=== PATIENT | female | born 1970 | race Caucasian/White ===

== ENCOUNTER 2022-04-11 14:07 | Inpatient (IN) | payer OTHER ==
[~2022-04-11] VITALS: Ht 165.1 cm; Wt 72.6 kg
--- NOTE | 2022-04-11 14:19 | NUR ---
NATHALY HERNANDEZ From Home "Flu-like symptoms 10days-NOT better". To ER bed 6, hooked to monitor, patient AAOx4. breathing even and unlabored. c/o abdominal pain and diarrhea. awaiting MD santacruz. kept comfortable.
--- NOTE | 2022-04-11 14:20 | NUR ---
DR Everett at bedside
[2022-04-11] MEDS ORDERED: IV NS 0.9% 1,000 ML BAG IV ONE (14:30)
[2022-04-11] MEDS ORDERED: ONDANSETRON HCL/PF 4 MG/2 ML VIAL ONE (14:59)
[2022-04-11] MEDS ORDERED: ONDANSETRON HCL/PF - ER 4 MG/2 ML VIAL IV ONE (15:00)
[2022-04-11 15:05] LABS: EOSINOPHILS % (AUTO) 1.6 % (0.0-6.0); HEMATOCRIT 44 % (33-45); LYMPHOCYTES # (AUTO) 0.7 K/uL (0.8-4.8); LYMPHOCYTES % (AUTO) 17.1 % (20.0-44.0); MEAN CORPUSCULAR HGB CONC 34 g/dl (31.0-36.0); MEAN CORPUSCULAR VOLUME 99 fL (82-100); MONOCYTES # (AUTO) 0.4 K/uL (0.1-1.30); MONOCYTES % (AUTO) 9.3 % (2.0-12.0); NEUTROPHILS # (AUTO) 2.9 K/uL (1.8-8.9); PLATELET COUNT (AUTO) 114 K/uL (150-450); RED BLOOD CELL COUNT(AUTO) 4.42 MIL/uL (4.0-5.2)
--- NOTE | 2022-04-11 15:12 | NUR ---
repid covid swab done and sent to lab
[2022-04-11 15:18] LABS: BILIRUBIN,URINE NEGATIVE (NEGATIVE); COLOR,URINE YELLOW (YELLOW); LEUKOCYTE ESTERASE ,URINE 1+ (NEGATIVE); NITRITE, URINE NEGATIVE (NEGATIVE); PROTEIN,URINE NEGATIVE (NEGATIVE); UGLUCOSE NEGATIVE (NEGATIVE)
[2022-04-11 15:23] LABS: CALCIUM, SERUM 8.5 mg/dL (8.5-10.1); CARBON DIOXIDE 29 mmol/L (21-32); CHLORIDE 102 mmol/L (98-107); CREATININE 0.9 mg/dL (0.6-1.3); GLUCOSE 107 mg/dL (74-106); POTASSIUM 3.1 mmol/L (3.5-5.1); SODIUM SERUM 137 mmol/L (136-145); UREA NITROGEN, BLOOD 7 mg/dL (7-18)
[2022-04-11 15:24] LABS: MAGNESIUM 1.8 mg/dL (1.8-2.4)
[2022-04-11 15:30] LABS: ALANINE AMINOTRANSFERASE 45 U/L (12-78); ALBUMIN 3.2 g/dL (3.4-5.0); ALKALINE PHOSPHATASE 113 U/L (46-116); ASPARTATE AMINOTRANSFERASE 104 U/L (15-37); BILIRUBIN,DIRECT 0.4 mg/dL (0.0-0.2); BILIRUBIN,TOTAL 1.6 mg/dL (0.2-1.0); LIPASE 179 U/L (73-393); TOTAL PROTEIN, SERUM 6.2 g/dL (6.4-8.2)
--- NOTE | 2022-04-11 15:34 | NUR ---
stool diego collected and sent to lab
[2022-04-11 15:37] LABS: BACTERIA,URINE Moderate /HPF (None Seen); RBC,URINE 0-2 /HPF (0-2); SQUAMOUS EPITHELIAL CELL,UR Few /HPF (None Seen)
[2022-04-11] MEDS ORDERED: DIAZ5TAB4 PO (15:48)
[2022-04-11] MEDS ORDERED: ESCI10TA PO (15:48)
[2022-04-11] MEDS ORDERED: OMEP20CA15 PO (15:48)
[2022-04-11] MEDS ORDERED: GABA-532 PO (15:48)
[2022-04-11] MEDS ORDERED: TRAZ-182 PO (15:48)
[2022-04-11] MEDS ORDERED: METRONIDAZOLE 500MG/ NS 100ML 100 ML IV ONE (15:51)
[2022-04-11] MEDS ORDERED: MORPHINE SULFATE INJ 2 MG/ML DISP.SYRIN ONE (15:52)
[2022-04-11] MEDS ORDERED: POTASSIUM CHLORIDE 20 MEQ TAB.PRT.SR PO ONE ×2 (15:52→16:00)
[2022-04-11] MEDS ORDERED: CIPROFLOXACIN HCL 500 MG TABLET ONE (15:52)
--- NOTE | 2022-04-11 15:55 | NUR ---
MOVE SHEET SUBMITTED.
[2022-04-11] MEDS ORDERED: MORPHINE SULFATE INJ 2 MG/ML DISP.SYRIN IV ONE (16:00)
[2022-04-11] MEDS ORDERED: CIPROFLOXACIN HCL 500 MG TABLET PO ONE (16:00)
[2022-04-11] MEDS: METRONIDAZOLE 500MG/ NS 100ML 500 MG in PREMIX 1 EA IV SCH (16:17)
--- NOTE | 2022-04-11 18:47 | NUR ---
DR BIGGS SPEAKING WITH DR. BROWN.
--- NOTE | 2022-04-11 18:52 | NUR ---
DR. BIGGS ACCEPTED PATIENT.
--- NOTE | 2022-04-11 18:56 | NUR ---
SPOKE WITH SHERMAN MANCILLA [phone] PT ACCEPTED TO [facility] UNDER DR BIGGS. WILL CALL US WHEN THEY HAVE A BED.
--- NOTE | 2022-04-11 19:17 | NUR ---
ENDORSEMENT GIVEN TO CHETAN CULLEN FOR [facility]
[2022-04-11] MEDS ORDERED: AMOX-430 PO (20:39)
[2022-04-11] MEDS ORDERED: NYST5ORA PO (20:40)
[2022-04-11] MEDS ORDERED: FLUCONAZOLE (100 MG) 100 MG TABLET ONE (20:50)
[2022-04-11] MEDS ORDERED: FLUCONAZOLE (100 MG) 100 MG TABLET PO ONE (21:00)
[2022-04-11] MEDS ORDERED: NYSTATIN (PYXIS) 500,000 UNIT/5 ML ORAL.SUSP PO ONE (21:00)
[2022-04-11] MEDS ORDERED: LORAZEPAM 1 MG TABLET PO ONE (22:00)
--- NOTE | 2022-04-11 22:00 | NUR ---
PT CAME TO THE DESK YELLING BECAUSE SHE WANT TO KNOW WHEN IS THE TRANSPORT COMING. PT WAS INFORMED THAT [facility] HASNT CALLED BACK TO GIVE A ROOM AND TRANSPORT INFORMATION. PT CONTINUED TO BE BELIGERENT, THREATENING AND YELLING PROFANITY TO STAFF. PT WAS ESCORTED BACK TO THE ROOM ALONG WITH THE SECURITY.
[2022-04-11] MEDS ORDERED: LORAZEPAM 1 MG TABLET ONE (22:20)
--- NOTE | 2022-04-11 22:35 | NUR ---
[employer] IS AT BEDSIDE
--- NOTE | 2022-04-11 23:05 | NUR ---
PT GOING TO [facility] 905-B NUMBER FOR REPORT IS [phone] ETA IS [phone] [employer] [employer]
--- NOTE | 2022-04-12 00:56 | NUR ---
room 312-2
[2022-04-12] MEDS ORDERED: ZOLPIDEM TARTRATE 5 MG TABLET PO PRN (01:00)
[2022-04-12] MEDS ORDERED: MAGNESIUM HYDROXIDE 30 ML UDC PO PRN (01:00)
[2022-04-12] MEDS ORDERED: MORPHINE SULFATE INJ 2 MG/ML DISP.SYRIN IV PRN (01:00)
[2022-04-12] MEDS ORDERED: Z GUARD REMEDY 4 OZ OINT TP PRN (01:00)
[2022-04-12] MEDS ORDERED: MAG HYDROX/AL HYDROX/SIMETH 30 ML UDC PO PRN (01:00)
[2022-04-12] MEDS ORDERED: IV NS 0.9% 1,000 ML IV PRN (01:00)
[2022-04-12] MEDS ORDERED: ACETAMINOPHEN 325 MG TABLET PO PRN (01:00)
[2022-04-12] MEDS ORDERED: HYDROCODONE/APAP 5/325MG TABLET PO PRN (01:00)
[2022-04-12] MEDS ORDERED: GABAPENTIN 100 MG CAPSULE PO PRN (01:00)
--- NOTE | 2022-04-12 01:30 | NUR ---
RECEIVED REPORT FROM OPERATIONS CHIEF KELLY. PATIENT IS GOING TO BE TRANSPORTED TO ROOM 307-2.
--- NOTE | 2022-04-12 01:40 | NUR ---
SECURED IV ACCESS ON R HAND#22, PATENT INTACT AND FLUSHING WELL
[2022-04-12 02:05] VITALS: BP 151/93
--- NOTE | 2022-04-12 02:05 | NUR ---
PT IS BEING TRANSPORTED TO UNIT ON [facility] WITH EMT AT BEDSIDE. PT IS IN STABLE CONDITION.
--- NOTE | 2022-04-12 02:05 | NUR ---
MS RN NOTE PATIENT WAS TRANSPORTED ON [facility] BY ONE PERSON FROM ER. PATIENT IS ALERT AND ORIENTED, AO X 4. PATIENT IS ON RA, TOLERATED WELL. NO S/S OF SOB OR DISTRESS. IV ACCESS IS ON HER RIGHT HAND, #22G, SL. PATENT AND INTACT. PATIENT'S VITAL SIGNS WERE TAKEN UPON ARRIVAL INTO HER ROOM. BP: 151/93; HR:66; RR: 20, OXYGEN SATURATION RATE IS 98% ON ROOM AIR. ACCESSED THE PATIENT AND DOCUMENTED IN THE SYSTEM. ORIENTED PATIENT THE SURROUNDINGS; TEACH HER HOW TO USE THE CALL BROWN. SAFETY MEASURES IN PLACE: BED IN LOW POSITION, LOCKED; CALL BROWN AND TABLE ARE IN REACH. PAIN LEVEL IS ACCESSED. WILL CONTINUE MONITORING PATENT THROUGH THE SHIFT.
[2022-04-12] MEDS: ONDANSETRON HCL/PF 4 MG/2 ML VIAL IVP PRN ×2 (03:11→12:20)
[2022-04-12] MEDS ORDERED: CIPROFLOXACIN IV RTU 400 MG in PREMIX 1 EA IV SCH (04:00)
[2022-04-12] MEDS ORDERED: CIPROFLOXACIN IV RTU 200 ML IV ONE (04:32)
--- NOTE | 2022-04-12 07:10 | NUR ---
MS RN RECEIVED ON BED, AWAKE,ALERT,ORIENTED X4,NOT IN ANY FORM OF DISTRESS, RESPIRATIONS EVEN AND UNLABORED,NO SOB NOTED, LUNGS ARE CLEAR,ABDOMEN SOFT,POSITIVE BOWEL SOUNDS,DENIES PAIN AT THIS TIME,ALL NEEDS ATTENDED.
--- NOTE | 2022-04-12 07:12 | NUR ---
MS RN CLOSING NOTE PATIENT IS SITTING IN BED. SHE IS ON RA, NO S/S OF SOB OR DISTRESS. TOLERATED WELL. IV ACCESS IS ON HER RIGHT HAND, #22G, RUNNING NS @75 ML/HOUR. PATENT AND INTACT. NO VOMITING OR DIARRHEA DURING THE SHIFT. PAIN MEDICATION GIVEN NEEDED. SAFETY MEASURES IN PLACE: BED IN LOW POSITION, LOCKED; SIDE RAILS UP X 2; CALL BROWN AND TABLE ARE IN REACH. PAIN LEVEL IS ACCESSED. WILL ENDORSE NEXT SHIFT NURSE FOR CONTINUE CARE OF THIS PATIENT.
--- NOTE | 2022-04-12 08:00 | NUR ---
ms rn was seen by dr. kelly w/ order to go home today.
[2022-04-12 08:01] VITALS: BP 146/96
[2022-04-12] MEDS: METRONIDAZOLE 500MG/ NS 100ML 500 MG in PREMIX 1 EA IV SCH ×3 (08:57)
[2022-04-12] MEDS ORDERED: NYSTATIN (PYXIS) 500,000 UNIT/5 ML ORAL.SUSP PO SCH (09:00)
[2022-04-12] MEDS ORDERED: ESCITALOPRAM OXALATE (10 MG) 10 MG TABLET PO SCH (09:00)
[2022-04-12] MEDS ORDERED: PANTOPRAZOLE 40 MG VIAL IV SCH (09:00)
[2022-04-12 11:04] LABS: EOSINOPHILS % (AUTO) 2.8 % (0.0-6.0); HEMATOCRIT 41 % (33-45); LYMPHOCYTES % (AUTO) 28.2 % (20.0-44.0); MEAN CORPUSCULAR HGB CONC 34 g/dl (31.0-36.0); MEAN CORPUSCULAR VOLUME 99 fL (82-100); MONOCYTES # (AUTO) 0.4 K/uL (0.1-1.30); MONOCYTES % (AUTO) 10.7 % (2.0-12.0); NEUTROPHILS % (AUTO) 57.3 % (43.0-81.0); PLATELET COUNT (AUTO) 115 K/uL (150-450); RED BLOOD CELL COUNT(AUTO) 4.11 MIL/uL (4.0-5.2); WHITE BLOOD COUNT (AUTO) 3.4 K/uL (4.3-11.0)
[2022-04-12 11:53] LABS: CALCIUM, SERUM 8.3 mg/dL (8.5-10.1); CREATININE 0.9 mg/dL (0.6-1.3); MAGNESIUM 1.8 mg/dL (1.8-2.4); PHOSPHORUS 3.3 mg/dL (2.5-4.9); POTASSIUM 3.1 mmol/L (3.5-5.1)
--- NOTE | 2022-04-12 12:50 | NUR ---
ms rn instructions given and understood, patient went home all needs attended, no distress noted.
--- NOTE | 2022-04-12 12:55 | NUR ---
ms rn went home,all needs attended.
[2022-04-12] MEDS ORDERED: TRAZODONE 50 MG TABLET PO SCH (22:00)
== END 2022-04-12 12:45 | disposition home or self-care (01) | DRG 392 ==
LOC: ER 14:10 → MED 04-12 01:46
PROVIDERS: ADMIT Nurse Practitioner Acute Care; ATTEND Internal Medicine
DX: K52.9 Noninfective gastroenteritis and colitis, unspecified (principal); N39.0 Urinary tract infection, site not specified; B37.0 Candidal stomatitis; K57.30 Diverticulosis of large intestine without perforation or abscess without bleeding; E87.6 Hypokalemia; Z20.822 Contact with and (suspected) exposure to COVID-19; E78.5 Hyperlipidemia, unspecified; F41.9 Anxiety disorder, unspecified; K70.0 Alcoholic fatty liver
CPT/HCPCS: 36415; 71045-TC; 80048-TC; 80076-TC; 81001; 82550-TC; 83690-TC; 83735-TC; 84100-TC; 84484-TC; 85025-TC; 87045-TC; 87081-TC; 87086-TC; 87806; A4216; C9113; C9803; G0378; G0480; J0744; J2270; J2405; J7030